=== PATIENT | female | born 2000 | race Two or more races ===

== ENCOUNTER → 2021-06-18 | Emergency (ER) | payer OTHER ==
[~2021-06-18] VITALS: Ht 170.2 cm; Wt 106.6 kg
== END | disposition home or self-care (01) ==
LOC: ER 11:51
DX: S69.92XA Unspecified injury of left wrist, hand and finger(s), initial encounter (principal); W26.8XXA Contact with other sharp object(s), not elsewhere classified, initial encounter; Y99.0 Civilian activity done for income or pay